=== PATIENT | female | born 2005 | race Hispanic/Latino ===

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

== ENCOUNTER 2023-05-01 11:57 | Emergency (ER) | payer OTHER | END 2023-05-01 13:39 | disposition home or self-care (01) | LOC: ERS 11:57 | DX: L03.031 Cellulitis of right toe (principal) | CPT/HCPCS: 99283 ==